=== PATIENT | male | born 1990 | race Caucasian/White ===

== ENCOUNTER 2017-06-01 01:58 | Emergency (ER) | END 2017-06-01 05:15 | disposition home or self-care (01) ==

== ENCOUNTER 2018-05-11 13:07 | Emergency (ER) | payer OTHER ==
[~2018-05-11] VITALS: Ht 175.3 cm; Wt 89.9 kg
[~2018-05-11 13:07] MED LIST: CEPH-443 PO; HYDR-3980 PO; SULF1TAB31 PO
[2018-05-11 13:09] VITALS: Ht 175.3 cm; Wt 89.9 kg
[2018-05-11] MEDS ORDERED: ALBUTEROL 0.083% (NEB) 2.5 MG/3 ML AMP NEB STA (13:36)
--- NOTE | 2018-05-11 13:54 | ERD ---
ER Documentation Chief Complaint Chief Complaint chest pain x 3 days HPI This is a 27-year-old male complains of cough wheezing and chest pain with cough for the past 3 days. Denies any mucus production, denies any fever. No shortness of breath. No GI symptoms ROS All systems reviewed and are negative except as per history of present illness. Medications Home Meds Discontinued Scripts Sulfamethoxazole/Trimethoprim* (Bactrim Ds* Tablet) 1 Each Tablet, 1 TAB PO BID, #20 TAB Prov:LEKKOS,APOSTOLOS A. DO 06/01/17 Cephalexin* (Keflex*) 500 Mg Capsule, 500 MG PO QID for 10 Days, CAP Prov:LEKKOS,APOSTOLOS A. DO 06/01/17 Hydrocodone/Acetaminophen (Bingen 10-325 Tablet) 1 Each Tablet, 1 TAB PO Q6H PRN for PAIN, #20 TAB Prov:LEKKOS,APOSTOLOS A. DO 06/01/17 Allergies Allergies: Coded Allergies: No Known Allergy (Unverified , 05/11/18) PMhx/Soc Medical and Surgical Hx: pt denies Medical Hx, pt denies Surgical Hx History of Surgery: No Anesthesia Reaction: No Hx Neurological Disorder: No Hx Respiratory Disorders: No Hx Cardiac Disorders: No Hx Psychiatric Problems: No Hx Miscellaneous Medical Probl: Yes (DRUG AND ALCOHOL ABUSE) Hx Alcohol Use: Yes (heavy daily) Hx Substance Use: Yes (MARIJUANA, SPEED, METH) Hx Tobacco Use: No Smoking Status: Former smoker FmHx Family History: No coronary disease Physical Exam Vitals Vital Signs Date Temp Pulse Resp B/P (MAP) Pulse Ox O2 O2 Flow FiO2 Time Delivery Rate 05/11/18 102 20 96 21 14:14 05/11/18 98.1 102 19 143/93 98 13:09 (110) Physical Exam Const: Well-developed, well-nourished Head: Atraumatic, normocephalic Eyes: Normal Conjunctiva, PERRLA, EOMI, normal sclera, no nystagmus ENT: Normal External Ears, Nose and Mouth, moist mucus membranes. Neck: Full range of motion. No meningismus, no lymphadenopathy. Resp: Clear to auscultation bilaterally, no wheezing, rhonchi, rales Cardio: Regular rate and rhythm, no murmurs, S1 S2 present Abd: Soft, non tender x 4, non distended. Normal bowel sounds, no guarding or rebound, no pulsitile abdominal masses or bruits Skin: No petechiae or rashes, no ecchymosis , no maculopapular rash Back: No midline or flank tenderness Ext: No cyanosis, or edema, FROM x 4, normal inspection, neurovascularly intact x 4 Neur: Awake and alert, STR 5/5 x 4, sensation intact x 4, no focal findings, cerebellum intact Psych: Normal Mood and Affect Results 24 hrs Current Medications Medications Dose Sig/True Start Time Status Last (Trade) Ordered Route PRN Stop Time Admin Dose Reason Admin Albuterol 7.5 mg ONCE STAT 05/11/18 DC 05/11/18 (Proventil NEB 13:36 14:09 0.083% (Neb)) 05/11/18 13:37 1 tab ONCE ONCE 05/11/18 DC 05/11/18 Acetaminophen PO 15:00 14:52 / 05/11/18 15:01 Hydrocodone Bitart (Bingen ()) Procedures/MDM EKG: Rate/Rhythm: Sinus tachycardia heart rate 109 QRS, ST, QT: NORMAL FL, QRS, QT] Impression: Sinus tachycardia Ordering MD: OLGA CRUZ DO Location: E/R Room/Bed: PROCEDURE: XR Chest. CLINICAL INDICATION: Asthma TECHNIQUE: Single portable view of the chest was obtained COMPARISON: None FINDINGS: The heart and mediastinum are within normal limits. There are mild right basilar linear atelectatic changes. The lungs are otherwise clear. There is no pleural effusion or pneumothorax. RPTAT: AA IMPRESSION: Mild right basilar linear atelectatic changes. .Trey German MD, MD Date Time Electronically viewed and signed by .Trey German MD, on 05/11/2018 14:31 .S/ CC: OLGA CRUZ DO [id number] Patient's sling better after breathing treatment. He has a URI symptoms with chest wall pain due to coughing. X-ray shows no pneumonia Patient feels much better at this time, and vital signs are normal, symptoms have improved. I did give strict instructions to return to the ED if symptoms continue or worsen, patient will otherwise follow-up with primary care physician. Patient understood instructions and agreed to plan. Disclaimer: Inadvertent spelling and grammatical errors are likely due to EHR/dictation software use and do not reflect on the overall quality of patient care. Also, please note that the electronic time recorded on this note does not necessarily reflect the actual time of the patient encounter. Departure Diagnosis: Primary Impression: Bronchitis Additional Impression: Chest wall pain Condition: Stable OLGA CRUZ DO May 11, 2018 13:54
[2018-05-11] MEDS ORDERED: HYDROCODONE/APAP (10/325) TAB PO ONE (15:00)
[2018-05-11] MEDS ORDERED: HYDR-3980 PO (15:22)
[2018-05-11] MEDS ORDERED: PRED20TA PO (15:22)
[2018-05-11] MEDS ORDERED: ALBU8.5H8 INH (15:22)
[2018-05-11 15:37] VITALS: BP 151/88; PULSE 107; RESP 17
== END 2018-05-11 15:39 | disposition home or self-care (01) ==
LOC: E/R 13:07
DX: J40 Bronchitis, not specified as acute or chronic (principal); R40.2142 Coma scale, eyes open, spontaneous, at arrival to emergency department; R40.2362 Coma scale, best motor response, obeys commands, at arrival to emergency department; R40.2252 Coma scale, best verbal response, oriented, at arrival to emergency department; R07.89 Other chest pain; Z87.891 Personal history of nicotine dependence
CPT/HCPCS: 71045; 93005; 94664; Z7502; Z7610